=== PATIENT | male | born 1995 | race Caucasian/White ===

== ENCOUNTER 2017-10-27 12:18 | Emergency (ER) | payer BC, MEDICAID ==
[2017-10-27 12:23] VITALS: TEMP 98.1
--- NOTE | 2017-10-27 12:34 | EDPHY ---
H & P Time Seen by Provider: 10/27/17 12:26 HPI/ROS: CHIEF COMPLAINT: Left index finger distal amputation HISTORY OF PRESENT ILLNESS: 22-year-old left hand dominant male was using a chop saw he sustained accidental amputation of the distal phalanx of his left index finger occurred shortly prior to arrival. He brought the distal portion with him on ice. Tetanus is up-to-date. No other injury. This was accidental. PRIMARY CARE PROVIDER: REVIEW OF SYSTEMS: A ten point review of systems was performed and is negative with the exception of the items mentioned in the HPI PAST MEDICAL & SURGICAL HISTORY: No pertinent medical or surgical history SOCIAL HISTORY:Nonsmoker PHYSICAL EXAM (Prior to examination, patient consented to physical exam, hands were washed and my usual and customary physical exam procedures followed) 1) GENERAL: Well-developed, well-nourished, alert and oriented. In appears uncomfortable. 2) HEAD: Normocephalic, atraumatic 3) HEENT: Sclera anicteric. 4) NECK: Full range of motion, no meningeal signs. 5) LUNGS: Breathing comfortably 6) HEART: No cyanotic discoloration 7) ABDOMEN: No guarding, 8) MUSCULOSKELETAL: Left index finger distal phalanx just distal to the DIP joint complete amputation. The amputated tissue was visualized and is pallorous , irregular laceration edges. No signs of infection 9) BACK: No visual or palpable abnormality. 10) SKIN: Left index finger distal phalanx amputation DIFFERENTIAL DIAGNOSIS: In no particular include but limited to amputation, laceration, infection Smoking Status: Never smoked Constitutional: Initial Vital Signs Temperature (C) 36.7 C 10/27/17 12:21 Heart Rate 77 10/27/17 12:21 Respiratory Rate 16 10/27/17 12:21 Blood Pressure 154/84 H 10/27/17 12:21 O2 Sat (%) 99 10/27/17 12:21 O2 Delivery Mode Room Air Allergies/Adverse Reactions: No Known Allergies Allergy (Verified 10/27/17 12:21) Home Medications: Medication Instructions Recorded Cephalexin [Keflex] 500 mg PO TID 7 Days cap 10/27/17 oxyCODONE/APAP 5/325 [Percocet 1 tab PO Q6 #30 tab 10/27/17 5/325] MDM/Departure - MDM Imaging Results: Imaging Impressions Finger X-Ray 10/27/17 12:32 Impression: 1. Amputation of distal index finger. 2. Comminuted open intra-articular fracture involving the residual base of the distal phalanx of the index finger. Medications Given: Discontinued Medications Cefazolin Sodium/Dextrose (Ancef 1 Gm (Premix)) 50 mls @ 200 mls/hr IV EDNOW ONE PRN Reason: Protocol Stop: 10/27/17 12:49 Last Admin: 10/27/17 12:39 Dose: 50 mls ED Course/Re-evaluation: 12:34 p.m.: Will consult with on-call hand surgery, obtain x-ray, administer IV antibiotic. Care of patient under supervision of [secondary] supervising physician Dr Deshaun Sidhu with whom I discussed case. 12:55 p.m.: Physicist [employer] [facility] [employer] hand surgery Dr. Vik Calabrese has been contacted 1:00 p.m.: Phone consultation with Dr. Vik Calabrese who will come to the ER to evaluate patient 1:35 p.m.: Dr. Vik Calabrese in the ER. 3:05 p.m.: Dr. Vik Calabrese has completed evaluation and treatment. He request patient follow up in 10 days, request patient be given Percocet number 30 tablets and Keflex for 1 week. - Depart Disposition: Home, Routine, Self-Care Clinical Impression: Fingertip amputation Qualifiers: Encounter type: initial encounter Qualified Code(s): S68.129A - Partial traumatic metacarpophalangeal amputation of unspecified finger, initial encounter Condition: Good Instructions: Finger Amputation (ED) Additional Instructions: Return to the ER if you develop redness, swelling, discharge, warmth to the wound, red streaks going up your arm, or any other symptoms that concern you. Prescriptions: Cephalexin [Keflex] 500 mg PO TID 7 Days cap Hydrocodone/APAP 5/325 [Wilson 5/325 (RX)] 1 tab PO Q6 PRN #10 tab PRN Reason: Pain, Severe Referrals: Vik Calabrese MD [Medical Doctor] - 11/06/17
[2017-10-27 15:16] VITALS: BP 156/72; PULSE 62; RESP 18; O2SAT 96
--- NOTE | 2017-10-27 20:45 | EDV ---
[f rep st] EMERGENCY DEPARTMENT REPORT DATE OF SERVICE: 10/27/2017 DIAGNOSIS: Left fingertip amputation. HISTORY OF PRESENT ILLNESS: The patient is a 22-year-old gentleman who was working a chop saw. He i nadvertently hit his left 2nd fingertip, taking it off just distal to the DIP joint. The fingertip w as brought in. The remaining tip was somewhat macerated. There were multiple bone fragments retaine d just distal to the DIP joint, which was visually exposed. The flexor tendon was visualized volarly and extensor apparatus was missing dorsally. We did not feel the amputated tip was replantable lillian use of its laceration and because of the location of the amputation. PAST MEDICAL HISTORY/ALLERGIES: None. MEDICATIONS: None. REVIEW OF SYSTEMS: Noncontributory. PHYSICAL EXAMINATION: GENERAL APPEARANCE: Patient alert, oriented, cooperative with exam. HEENT: Within normal limits. CHEST: Clear to auscultation. CARDIAC: Regular rate and rhythm. Normal S1, S2. No gallops or murmurs. EXTREMITIES: Examination of the finger is described above. PROCEDURE: Patient's left upper extremity was prepped and draped. The finger remaining finger tip w as addressed. Multiple small bone fragments were excised down to the level of the articulation of th e distal aspect of the middle phalanx. The nail matrix was slightly retained on the ulnar border. T his was resected. The finger amputation was very oblique in nature. We felt that in order to preser ve length that we would need to perform a patch graft. We elected to use the remaining skin from the amputation stump as a thick split-thickness biological graft. The remaining bone was removed from t he amputated fingertip. The fat was removed. We took this down to the subdermal layer. Thorough la vage was performed of the tip before we replaced it. The finger amputation was partially closed leav ing a radial dorsal opening. The thick split-thickness graft was then used as a biological dressing by placing this over that exposed area and sewing it into place. This was before closing the dermal layer. A deep stitch was placed in the flexor digitorum profundus, bring it dorsally around the tip of the finger without creating tension. This was reapproximated with a 2-0 PDS suture. The graft wa s then placed and secured with 5-0 nylon sutures. The sterile compression dressing was applied follo wed by a splint. The patient tolerated procedure well and was transferred back to recovery in stable condition. No operative complications. The patient is discharged home under the guidance of his father. He is given prescriptions on discha rge for Percocet 1-2 tabs p.o. q.4 hours p.r.n. and Keflex 500 mg p.o. q.i.d. x1 week. He is up to d ate on his tetanus by history. He had been given 2 g of IV Ancef prior to the procedure. Anticipate following up in 10 days for dressing change and further overall evaluation. /[id number]/MODL
== END 2017-10-27 15:40 | disposition home or self-care (01) ==
DX: S68.121A Partial traumatic metacarpophalangeal amputation of left index finger, initial encounter (principal); W26.8XXA Contact with other sharp object(s), not elsewhere classified, initial encounter; Y93.89 Activity, other specified
CPT/HCPCS: 96365; J0690

== ENCOUNTER 2018-01-03 10:12 | Emergency (ER) | payer SELFPAY ==
--- NOTE | 2018-01-03 10:43 | EDPHY ---
General Time Seen by Provider: 01/03/18 10:24 Narrative: CHIEF COMPLAINT: Testicular pain, lower abdominal pain HISTORY OF PRESENT ILLNESS: Patient complains of left testicular pain and lower abdominal pain. The testicular pain has been present on off for the past year. It comes and goes. Currently [id number]. Sometimes worse with "jolts" and Valsalva. Pain is worse when he exercises. It radiates into the lower abdomen has vague lower abdominal pain at times. No painful urination. No discharge from the urethral meatus. No flank pain. No fever. No upper abdominal pain. No nausea vomiting. No formal evaluation. He has had urinalysis performed. No other associated complaints or modifying factors. REVIEW OF SYSTEMS: Ten systems reviewed and are negative unless otherwise noted in the HPI PCP: None SPECIALISTS: [facility] PAST MEDICAL HISTORY: Uncomplicated medical history PAST SURGICAL HISTORY: Left elbow arthroscopic surgery SOCIAL HISTORY: Occasional tobacco use. Occasional alcohol use. Occasional marijuana use. Lives and works here locally. FAMILY HISTORY: Noncontributory. No history of inflammatory bowel EXAMINATION General Appearance: Alert, no distress Head: normocephalic, atraumatic Eyes: Pupils equal and round, no conjunctival pallor or injection ENT, Mouth: Mucous membranes moist Neck: Normal inspection, supple, non-tender Respiratory: Lungs are clear to auscultation Cardiovascular: Regular rate and rhythm no murmur Gastrointestinal: Abdomen is soft and nontender : uncircumcised penis. No discharge. No erythema. No crepitus. Right testicle is normal in appearance and palpation. Left testicle is normal appearance with tenderness palpation. No fluctuance. Normal cremasteric. Back: non-tender, no bony abnormalities Neurological: A&O, nonfocal, normal gait Skin: Warm and dry, no rash. No petechiae or purpura no abscess. Extremities: Nontender, no pedal edema Psychiatric: Mood and affect normal DIFFERENTIAL DIAGNOSES: Including but not limited to prostatitis, orchitis, epididymitis, STI, urethritis, cystitis, colitis, diverticulitis, musculoskeletal pain MDM: 10:40 a.m. Left testicular pain that has been paroxysmal for the past year. He is also having lower abdominal pain in both quadrants for the past 24 hr. Abdominal exam is benign. Vital signs are within normal limits. Urinalysis will be obtained including both a clean and dirty specimen for sexually transmitted infection. I have ordered laboratory studies, ultrasound of the testicles. Resting comfortably in no acute distress. 11:20 a.m. Notified by radiologist Dr. Sam. Small varicocele on the left side. No evidence of torsion. Normal appearance of left and right epididymis. CBC is unremarkable. Chemistry is within normal limits. Urine reveals mildly elevated pH and 3-5 red blood cells only. 11:30 a.m. Patient re-evaluated. We discussed the small varicocele and otherwise normal ultrasound. We discussed other etiologies and his normal laboratory studies. I do feel he is stable for discharge home with outpatient follow-up. Dr. Johnson agrees. Urinalysis is unremarkable with pending chlamydia and gonorrhea test. We discussed ED precautions and follow up with the on-call primary care physician as provided. He is comfortable this plan and discharged home stable condition. SUPERVISION: Patient was independently examined, but I discussed the case with my primary supervising physician Dr. Magallon. - Diagnostics Imaging Results: Imaging Impressions Testicular Ultrasound 01/03/18 10:26 Impression: Left-sided varicocele. Findings discussed with Ken Murcia 01/03/2018 at 11:19. - History Smoking Status: Never smoked - Objective Vital Signs: Initial Vital Signs Temperature (C) 97.7 F 01/03/18 10:16 Heart Rate 63 01/03/18 10:16 Respiratory Rate 17 01/03/18 10:16 Blood Pressure 131/74 H 01/03/18 10:16 O2 Sat (%) 96 01/03/18 10:16 O2 Delivery Mode Room Air Allergies/Adverse Reactions: No Known Allergies Allergy (Verified 01/03/18 10:14) Home Medications: Medication Instructions Recorded NK [No Known Home Meds] 01/03/18 Laboratory Results: Laboratory Results 01/03/18 10:50 01/03/18 10:50 01/03/18 01/03/18 01/03/18 10:50 10:50 10:20 WBC 7.47 10^3/uL 10^3/uL (3.80-9.50) RBC 5.36 10^6/uL 10^6/uL (4.40-6.38) Hgb 15.8 g/dL g/dL (13.7-17.5) Hct 46.6 % % (40.0-51.0) MCV 86.9 fL fL (81.5-99.8) MCH 29.5 pg pg (27.9-34.1) MCHC 33.9 g/dL g/dL (32.4-36.7) RDW 14.4 % % (11.5-15.2) Plt Count 239 10^3/uL 10^3/uL (150-400) MPV 9.4 fL fL (8.7-11.7) Neut % (Auto) 64.5 % % (39.3-74.2) Lymph % (Auto) 26.0 % % (15.0-45.0) Dickens % (Auto) 7.4 % % (4.5-13.0) Eos % (Auto) 1.5 % % (0.6-7.6) Baso % (Auto) 0.3 % % (0.3-1.7) Nucleat RBC Rel Count 0.0 % % (0.0-0.2) Absolute Neuts (auto) 4.83 10^3/uL 10^3/uL (1.70-6.50) Absolute Lymphs (auto) 1.94 10^3/uL 10^3/uL (1.00-3.00) Absolute Monos (auto) 0.55 10^3/uL 10^3/uL (0.30-0.80) Absolute Eos (auto) 0.11 10^3/uL 10^3/uL (0.03-0.40) Absolute Basos (auto) 0.02 10^3/uL 10^3/uL (0.02-0.10) Absolute Nucleated RBC 0.00 10^3/uL 10^3/uL (0-0.01) Immature Gran % 0.3 % % (0.0-1.1) Immature Gran # 0.02 10^3/uL 10^3/uL (0.00-0.10) Sodium 139 mEq/L mEq/L (135-145) Potassium 4.5 mEq/L mEq/L (3.5-5.2) Chloride 102 mEq/L mEq/L (97-110) Carbon Dioxide 26 mEq/l mEq/l (22-31) Anion Gap 11 mEq/L mEq/L (8-16) BUN 11 mg/dL mg/dL (7-23) Creatinine 0.7 mg/dL mg/dL (0.7-1.3) Estimated GFR > 60 Glucose 87 mg/dL mg/dL (70-100) Calcium 9.5 mg/dL mg/dL (8.5-10.4) Total Bilirubin 1.2 mg/dL mg/dL (0.1-1.4) Conjugated Bilirubin 0.3 mg/dL mg/dL (0.0-0.5) Unconjugated Bilirubin 0.9 mg/dL mg/dL (0.0-1.1) AST 22 IU/L IU/L (17-59) ALT 27 IU/L IU/L (21-72) Alkaline Phosphatase 53 IU/L IU/L (38-126) Total Protein 7.4 g/dL g/dL (6.3-8.2) Albumin 4.3 g/dL g/dL (3.5-5.0) Lipase 50 IU/L IU/L (23-300) Urine Color YELLOW Urine Appearance CLEAR Urine pH 8.0 H (5.0-7.5) Ur Specific [place] 1.012 (1.002-1.030) Urine Protein NEGATIVE (NEGATIVE) Urine Ketones NEGATIVE (NEGATIVE) Urine Blood NEGATIVE (NEGATIVE) Urine Nitrate NEGATIVE (NEGATIVE) Urine Bilirubin NEGATIVE (NEGATIVE) Urine Urobilinogen NEGATIVE EU EU (0.2-1.0) Ur Leukocyte Esterase NEGATIVE (NEGATIVE) Urine RBC 3-5 /hpf H /hpf (0-3) Urine WBC 1-3 /hpf /hpf (0-3) Ur Epithelial Cells NONE SEEN /lpf /lpf (NONE-1+) Urine Sperm PRESENT /hpf /hpf (NONE SEEN) Urine Glucose NEGATIVE (NEGATIVE) C.trachomatis RNA (TMA) N.gonorrhoeae RNA (TMA) 01/03/18 10:20 WBC RBC Hgb Hct MCV MCH MCHC RDW Plt Count MPV Neut % (Auto) Lymph % (Auto) Dickens % (Auto) Eos % (Auto) Baso % (Auto) Nucleat RBC Rel Count Absolute Neuts (auto) Absolute Lymphs (auto) Absolute Monos (auto) Absolute Eos (auto) Absolute Basos (auto) Absolute Nucleated RBC Immature Gran % Immature Gran # Sodium Potassium Chloride Carbon Dioxide Anion Gap BUN Creatinine Estimated GFR Glucose Calcium Total Bilirubin Conjugated Bilirubin Unconjugated Bilirubin AST ALT Alkaline Phosphatase Total Protein Albumin Lipase Urine Color Urine Appearance Urine pH Ur Specific [place] Urine Protein Urine Ketones Urine Blood Urine Nitrate Urine Bilirubin Urine Urobilinogen Ur Leukocyte Esterase Urine RBC Urine WBC Ur Epithelial Cells Urine Sperm Urine Glucose C.trachomatis RNA (TMA) Pending N.gonorrhoeae RNA (TMA) Pending Departure - Departure Disposition: Home, Routine, Self-Care Clinical Impression: Left varicocele, Testicular pain, left Condition: Good Instructions: Varicocele (ED), Testicle Pain (ED) Additional Instructions: 1. Contact on-call primary care physician as provided to established as a new patient 2. ED precautions for worsening pain, fever, painful urination 3. There is a pending urine test that will result by tomorrow. He will need to call the emergency department to discuss with us Referrals: David Kulkarni DO [Doctor of Osteopathy] - As per Instructions Gordo Bella MD [Medical Doctor] - As per Instructions [facility],. [Clinic] - As per Instructions
[2018-01-03 10:56] LABS: PLATELET COUNT 239 10^3/uL (150-400)
[2018-01-03 11:56] VITALS: BP 146/85
[2018-01-04 15:10] LABS: GC AMPLIFICATION GENPROBE NEGATIVE (NEGATIVE)
== END 2018-01-03 11:53 | disposition home or self-care (01) ==
DX: I86.1 Scrotal varices (principal)